=== PATIENT | female | born 1960 | race African-American/Black ===

== ENCOUNTER → 2019-01-26 | Outpatient (CLI) | payer BC | END | disposition home or self-care (01) | LOC: RAD 12:10 | PROVIDERS: ATTEND Family Medicine | DX: M25.562 Pain in left knee (principal); R22.42 Localized swelling, mass and lump, left lower limb | CPT/HCPCS: 73562 ==

== ENCOUNTER → 2019-03-06 | Outpatient (CLI) | payer BC ==
[2019-03-06 17:27] LABS: BASOPHILS % 0.4 % (0.0-2.0); EOSINOPHILS % 2.2 % (0.0-5.0); HEMATOCRIT. 36.7 % (36.0-48.0); HEMOGLOBIN. 12.6 g/dL (12.0-16.0); LYMPHOCYTES % 27.7 % (20.0-50.0); MEAN CORPUSCULAR HEMOGLOBIN 30.4 pg (28.0-32.0); MEAN CORPUSCULAR VOLUME 88.4 fL (81.0-99.0); MEAN PLATELET VOLUME 8.3 fl (7.4-10.4); MONOCYTES % 5.8 % (2.0-8.0); NEUTROPHILS % 63.9 % (40.0-76.0); PLATELET 310 x1000/uL (130-400); RED BLOOD CELL COUNT 4.15 mill/uL (4.2-5.4); RED CELL DISTRIBUTION WIDTH 14.1 % (11.6-14.6)
[2019-03-06 18:11] LABS: CHLORIDE 102 mEq/L (98-107)
[2019-03-06 18:18] LABS: LDL CHOLESTEROL 118 mg/dL (5-100)
[2019-03-06 18:19] LABS: HDL CHOLESTEROL 58 mg/dL (40-59)
[2019-03-06 18:20] LABS: T4 FREE 0.82 ng/dL (0.76-1.46)
[2019-03-06 18:30] LABS: FOLIC ACID (FOLATE) SERUM 14.6 ng/mL (>5.38)
[2019-03-08 08:07] LABS: VITAMIN D 25-OH 36.8 ng/mL (30.0-100.0)
== END | disposition home or self-care (01) ==
LOC: LAB 16:52
PROVIDERS: ATTEND Pediatrics
DX: E55.9 Vitamin D deficiency, unspecified (principal); I10 Essential (primary) hypertension; D51.9 Vitamin B12 deficiency anemia, unspecified; R53.83 Other fatigue
CPT/HCPCS: 36415; 80061; 82306; 82746; 83036; 84439; 84443; 84481; 86376

== ENCOUNTER → 2019-07-27 | Outpatient (CLI) | payer BC ==
[2019-07-27 07:07] LABS: BASOPHILS % 0.7 % (0.0-2.0); EOSINOPHILS % 3.1 % (0.0-5.0); HEMATOCRIT. 35.9 % (36.0-48.0); HEMOGLOBIN. 12.7 g/dL (12.0-16.0); LYMPHOCYTES % 28.7 % (20.0-50.0); MEAN CORPUSCULAR HEMOGLOBIN 31.5 pg (28.0-32.0); MEAN CORPUSCULAR VOLUME 89.1 fL (81.0-99.0); MEAN PLATELET VOLUME 8.4 fl (7.4-10.4); NEUTROPHILS % 61.5 % (40.0-76.0); PLATELET 295 x1000/uL (130-400); RED BLOOD CELL COUNT 4.03 mill/uL (4.2-5.4); RED CELL DISTRIBUTION WIDTH 13.6 % (11.6-14.6)
[2019-07-27 07:20] LABS: CHLORIDE 105 mEq/L (98-107)
[2019-07-27 07:36] LABS: LDL CHOLESTEROL 111 mg/dL (5-100)
[2019-07-27 07:37] LABS: HDL CHOLESTEROL 51 mg/dL (40-59)
== END | disposition home or self-care (01) ==
LOC: LAB 06:22
PROVIDERS: ATTEND Family Medicine
DX: I10 Essential (primary) hypertension (principal); E78.5 Hyperlipidemia, unspecified; E55.9 Vitamin D deficiency, unspecified; R73.03 Prediabetes
CPT/HCPCS: 36415; 80053; 80061; 82306; 83036; 85025

== ENCOUNTER → 2019-08-17 | Outpatient (CLI) | payer BC ==
[2019-08-17 16:46] LABS: CLARITY URINE CLOUDY (CLEAR); COLOR URINE ORANGE (YELLOW); KETONES URINE NEGATIVE (NEGATIVE); LEUKOCYTE ESTERASE URINE 3+ (NEGATIVE); NITRITE URINE POSITIVE (NEGATIVE); OCCULT BLOOD URINE NEGATIVE (NEGATIVE); PROTEIN URINE TRACE (NEGATIVE); SPECIFIC GRAVITY URINE 1.016 (1.005-1.030)
== END | disposition home or self-care (01) ==
LOC: LAB 12:17
DX: N39.0 Urinary tract infection, site not specified (principal)
CPT/HCPCS: 81003

== ENCOUNTER → 2020-04-08 | Outpatient (CLI) | payer BC ==
[2020-04-08 07:54] LABS: CHLORIDE 105 mEq/L (98-107)
[2020-04-08 07:56] LABS: BASOPHILS % 0.6 % (0.0-2.0); EOSINOPHILS % 2.4 % (0.0-5.0); HEMATOCRIT. 34.4 % (36.0-48.0); LYMPHOCYTES % 30.4 % (20.0-50.0); MEAN CORPUSCULAR VOLUME 88.7 fL (81.0-99.0); MEAN PLATELET VOLUME 8.4 fl (7.4-10.4); MONOCYTES % 4.8 % (2.0-8.0); NEUTROPHILS % 61.8 % (40.0-76.0); PLATELET 290 x1000/uL (130-400); RED BLOOD CELL COUNT 3.87 mill/uL (4.2-5.4); RED CELL DISTRIBUTION WIDTH 13.9 % (11.6-14.6)
[2020-04-08 08:02] LABS: LDL CHOLESTEROL 128 mg/dL (5-100)
[2020-04-08 08:03] LABS: HDL CHOLESTEROL 53 mg/dL (40-59)
[2020-04-08 08:04] LABS: T4 FREE 0.91 ng/dL (0.76-1.46)
[2020-04-08 08:37] LABS: CLARITY URINE CLOUDY (CLEAR); COLOR URINE YELLOW (YELLOW); KETONES URINE NEGATIVE (NEGATIVE); LEUKOCYTE ESTERASE URINE 2+ (NEGATIVE); NITRITE URINE NEGATIVE (NEGATIVE); OCCULT BLOOD URINE TRACE (NEGATIVE); PH URINE 6.5 (4.5-8.0); PROTEIN URINE NEGATIVE (NEGATIVE); SPECIFIC GRAVITY URINE 1.018 (1.005-1.030); UROBILINOGEN URINE 0.2 E.U./dL (0.2-1.0)
[2020-04-08 08:47] LABS: VITAMIN B12 SERUM >2000 pg/mL pg/mL (211-911)
[2020-04-09 08:11] LABS: ESTRADIOL 20.5 pg/mL (.); FOLICLE STIMULATING HORMONE 82.5 mIU/mL (.); THYROID PEROXIDASE ANTIBODY < 9 IU/mL (0-34); VITAMIN D 25-OH 63.6 ng/mL (30.0-100.0)
== END | disposition home or self-care (01) ==
LOC: LAB 04-07 16:39
PROVIDERS: ATTEND Pediatrics
DX: N95.1 Menopausal and female climacteric states (principal); I10 Essential (primary) hypertension; R53.83 Other fatigue
CPT/HCPCS: 36415; 80053; 80061; 81003; 82306; 82607; 82670; 83001; 83036; 84403; 84439; 84443; 85025; 86376

== ENCOUNTER → 2020-12-31 | Outpatient (CLI) | payer BC ==
[2020-12-31 08:05] LABS: BASOPHILS % 0.6 % (0.0-2.0); EOSINOPHILS % 2.4 % (0.0-5.0); HEMATOCRIT. 35.3 % (36.0-48.0); HEMOGLOBIN. 12.4 g/dL (12.0-16.0); LYMPHOCYTES % 27.5 % (20.0-50.0); MEAN CORPUSCULAR HEMOGLOBIN 31.1 pg (28.0-32.0); MEAN CORPUSCULAR VOLUME 88.3 fL (81.0-99.0); MEAN PLATELET VOLUME 7.9 fl (7.4-10.4); MONOCYTES % 5.4 % (2.0-8.0); NEUTROPHILS % 64.1 % (40.0-76.0); PLATELET 340 x1000/uL (130-400); RED CELL DISTRIBUTION WIDTH 14.1 % (11.6-14.6)
[2020-12-31 08:12] LABS: CLARITY URINE CLOUDY (CLEAR); COLOR URINE YELLOW (YELLOW); KETONES URINE TRACE (NEGATIVE); LEUKOCYTE ESTERASE URINE 3+ (NEGATIVE); NITRITE URINE NEGATIVE (NEGATIVE); OCCULT BLOOD URINE TRACE (NEGATIVE); PH URINE 6.5 (4.5-8.0); PROTEIN URINE TRACE (NEGATIVE); SPECIFIC GRAVITY URINE 1.016 (1.005-1.030)
[2020-12-31 08:39] LABS: CHLORIDE 105 mEq/L (98-107)
[2020-12-31 08:50] LABS: HDL CHOLESTEROL 51 mg/dL (40-59)
[2020-12-31 08:51] LABS: LDL CHOLESTEROL 127 mg/dL (5-100); T4 FREE 0.88 ng/dL (0.76-1.46)
[2020-12-31 09:25] LABS: VITAMIN B12 SERUM 909 pg/mL (211-911)
== END | disposition home or self-care (01) ==
LOC: LAB 07:31
PROVIDERS: ATTEND Pediatrics
DX: Z00.00 Encounter for general adult medical examination without abnormal findings (principal)
CPT/HCPCS: 36415; 80053; 80061; 81003; 82306; 82607; 84439; 84443; 84481; 85025

== ENCOUNTER → 2021-08-10 | Outpatient (CLI) | payer BC ==
[2021-08-10 08:34] LABS: BASOPHILS % 0.4 % (0.0-2.0); EOSINOPHILS % 2.5 % (0.0-5.0); HEMOGLOBIN. 12.2 g/dL (12.0-16.0); LYMPHOCYTES % 19.7 % (20.0-50.0); MEAN CORPUSCULAR HEMOGLOBIN 30.4 pg (28.0-32.0); MEAN CORPUSCULAR VOLUME 87.4 fL (81.0-99.0); MEAN PLATELET VOLUME 8.2 fl (7.4-10.4); MONOCYTES % 6.1 % (2.0-8.0); NEUTROPHILS % 71.3 % (40.0-76.0); PLATELET 284 x1000/uL (130-400); RED CELL DISTRIBUTION WIDTH 13.8 % (11.6-14.6)
[2021-08-10 09:04] LABS: CHLORIDE 108 mEq/L (98-107)
[2021-08-10 09:12] LABS: LDL CHOLESTEROL 110 mg/dL (5-100)
[2021-08-10 09:14] LABS: HDL CHOLESTEROL 54 mg/dL (40-59); T4 FREE 0.88 ng/dL (0.76-1.46)
[2021-08-10 09:33] LABS: VITAMIN B12 SERUM 782 pg/mL (211-911)
[2021-08-10 09:54] LABS: CLARITY URINE CLOUDY (CLEAR); COLOR URINE YELLOW (YELLOW); KETONES URINE NEGATIVE (NEGATIVE); LEUKOCYTE ESTERASE URINE 2+ (NEGATIVE); NITRITE URINE NEGATIVE (NEGATIVE); OCCULT BLOOD URINE 1+ (NEGATIVE); PH URINE 6.5 (4.5-8.0); PROTEIN URINE TRACE (NEGATIVE); SPECIFIC GRAVITY URINE 1.021 (1.005-1.030); UROBILINOGEN URINE 0.2 E.U./dL (0.2-1.0)
[2021-08-11 04:07] LABS: THYROID PEROXIDASE ANTIBODY < 8 IU/mL (0-34); VITAMIN D 25-OH 39.9 ng/mL (30.0-100.0)
== END | disposition home or self-care (01) ==
LOC: LAB 07:39
PROVIDERS: ATTEND Pediatrics
DX: Z00.00 Encounter for general adult medical examination without abnormal findings (principal); I10 Essential (primary) hypertension
CPT/HCPCS: 36415; 80053; 80061; 81003; 82306; 82607; 83036; 84439; 84443; 84481; 85025; 86376

== ENCOUNTER → 2021-09-04 | Outpatient (CLI) | payer BC | END | disposition home or self-care (01) | LOC: MAMMO 07:50 | PROVIDERS: ATTEND Family Medicine | DX: Z12.31 Encounter for screening mammogram for malignant neoplasm of breast (principal) | CPT/HCPCS: 77063; 77067 ==

== ENCOUNTER → 2023-10-03 | Outpatient (CLI) | payer BC ==
[2023-10-03 08:12] LABS: CHLORIDE 107 mEq/L (98-107); POTASSIUM 3.4 mEq/L (3.5-5.1); SODIUM 141 mEq/L (136-145)
[2023-10-03 08:13] LABS: CALCIUM 10.5 mg/dL (8.7-10.4); CARBON DIOXIDE 32 mEq/L (21-32)
[2023-10-03 08:18] LABS: GLUCOSE 101 mg/dL (70-105); IRON 74 ug/dL (50-170); TRIGLYCERIDE 100 mg/dL (0-150); UREA NITROGEN BLOOD 25 mg/dL (9-23)
[2023-10-03 08:19] LABS: LDL CHOLESTEROL 140 mg/dL (5-100)
[2023-10-03 08:20] LABS: ALANINE AMINOTRANSFERASE 11 IU/L (10-49); ALBUMIN 4.6 g/dL (3.2-4.8); ASPARTATE AMINOTRANSFERASE 14 IU/L (<34); BILIRUBIN TOTAL 0.3 mg/dL (0.1-1.0); CHOLESTEROL 188 mg/dL (<200); HDL CHOLESTEROL 46 mg/dL (>65)
[2023-10-03 08:21] LABS: PROTEIN TOTAL 7.5 g/dL (6.0-8.3)
[2023-10-03 08:22] LABS: FERRITIN 675 ng/mL (10-291)
[2023-10-03 08:23] LABS: FOLIC ACID (FOLATE) SERUM 17.09 ng/mL (>5.38); THYROID STIMULATING HORMONE 3.12 uIU/mL (0.55-4.78); VITAMIN B12 SERUM 333 pg/mL (211-911)
[2023-10-03 08:40] LABS: CLARITY URINE CLEAR (CLEAR); COLOR URINE YELLOW (YELLOW); GLUCOSE URINE NEGATIVE (NEGATIVE); KETONES URINE NEGATIVE (NEGATIVE); LEUKOCYTE ESTERASE URINE NEGATIVE (NEGATIVE); NITRITE URINE NEGATIVE (NEGATIVE); OCCULT BLOOD URINE NEGATIVE (NEGATIVE); PH URINE 7.5 (4.5-8.0); PROTEIN URINE NEGATIVE (NEGATIVE); SPECIFIC GRAVITY URINE 1.018 (1.005-1.030)
== END | disposition home or self-care (01) ==
LOC: LAB 07:24
PROVIDERS: ATTEND Internal Medicine Geriatric Medicine
DX: Z00.01 Encounter for general adult medical examination with abnormal findings (principal); N93.0 Postcoital and contact bleeding; I10 Essential (primary) hypertension
CPT/HCPCS: 36415; 80053; 80061; 81003; 82306; 82607; 82728; 82746; 83036; 83540; 84443; 86592

== ENCOUNTER → 2023-10-07 | Outpatient (CLI) | payer BC | END | disposition home or self-care (01) | LOC: MAMMO 08:18 | PROVIDERS: ATTEND Internal Medicine Geriatric Medicine | DX: Z12.31 Encounter for screening mammogram for malignant neoplasm of breast (principal); R60.0 Localized edema | CPT/HCPCS: 77063; 77067; 93970 ==

== ENCOUNTER → 2023-10-21 | Outpatient (CLI) | payer BC ==
[2023-10-21 08:02] LABS: CARBON DIOXIDE 29 mEq/L (21-32); CHLORIDE 108 mEq/L (98-107); POTASSIUM 3.5 mEq/L (3.5-5.1); SODIUM 143 mEq/L (136-145)
[2023-10-21 08:03] LABS: CALCIUM 9.6 mg/dL (8.7-10.4)
[2023-10-21 08:07] LABS: CREATININE 0.9 mg/dL (0.6-1.0); GLUCOSE 88 mg/dL (70-105); IRON 85 ug/dL (50-170)
[2023-10-21 08:08] LABS: UREA NITROGEN BLOOD 13 mg/dL (9-23)
[2023-10-21 08:10] LABS: TOTAL IRON BINDING CAPACITY 265 ug/dl (250-425)
== END | disposition home or self-care (01) ==
LOC: LAB 07:29
PROVIDERS: ATTEND Internal Medicine Geriatric Medicine
DX: R79.89 Other specified abnormal findings of blood chemistry (principal); E87.6 Hypokalemia
CPT/HCPCS: 36415; 80048; 82728; 83540; 83550